=== PATIENT | female | born 1940 | race Caucasian/White ===

== ENCOUNTER 2017-01-21 10:40 | Outpatient (CLI) | payer MEDICARE ==
[2017-01-21 18:09] LABS: ALBUMIN/GLOBULIN RATIO 1.1 (1.0-2.2); BILIRUBIN,TOTAL 0.7 mg/dL (0.2-1.0); BUN - BLOOD UREA NITROGEN 20 mg/dL (6-20); CALCIUM 9.2 mg/dL (8.5-10.3); CARBON DIOXIDE - CO2 27 mmol/L (21-32); CHLORIDE 103 mmol/L (101-111); CHOL/HDL RATIO 4.8 (<4.4); CHOLESTEROL 181 mg/dL; GFR - MDRD 54 (>89); GLUCOSE 98 mg/dL (70-100); HDL CHOLESTEROL 38 mg/dL; LDL/HDL RATIO 2.9 (<4.4); POTASSIUM 4.2 mmol/L (3.5-5.0); SODIUM 137 mmol/L (135-145); TOTAL PROTEIN 7.8 g/dL (6.7-8.2); TRIGLYCERIDES 159 mg/dL; VLDL CHOLESTEROL 32 mg/dL
[2017-01-21 18:22] LABS: HEMOGLOBIN A1C 0.59 g/dL
== END 2017-01-21 10:41 | disposition home or self-care (01) ==
LOC: LAB.F 10:40
PROVIDERS: ATTEND Family Medicine
DX: Z00.00 Encounter for general adult medical examination without abnormal findings (principal); E78.5 Hyperlipidemia, unspecified; R73.01 Impaired fasting glucose
CPT/HCPCS: 36415; 80053; 80061; 80178; 83036

== ENCOUNTER 2017-02-25 12:37 | Outpatient (CLI) | payer MEDICARE ==
--- NOTE | 2017-02-25 14:32 | MRI Report ---
EXAM: MRI LUMBAR SPINE WITHOUT CONTRAST EXAM DATE: 02/25/2017 12:45 PM. CLINICAL HISTORY: Chronic low back pain for years. Originally worse on the right side with right-side d radiculopathy. COMPARISON: Copy of sheets of film of lumbar spine plain films 01/05/2007. TECHNIQUE: Multiplanar, multisequence T1-weighted and fluid-sensitive sequences of the lumbar spine f rom T12 to S1 without contrast. Other: None. FINDINGS: Spinal Cord: The conus terminates at T12-L1. The conus medullaris and cauda equina are unremarkable. Lumbar spinal canal is adequate. Alignment: Minimal, 2 mm, retrolisthesis is seen at L2-L3 and L3-L4. Bone Marrow: Five pwy-ieo-ilaitja lumbar vertebral bodies are assumed. No gross fractures or bone les ions. No bone marrow edema. Disk Levels/Facets: T12-L1: Unremarkable. Mild degenerative facet change is seen. Thickening of right ligamentum flavum i s noted. L1-L2: Unremarkable. L2-L3: Mild loss of disk space height is seen. Mild anterior bulge of disk/osteophyte complex is seen . No stenosis. L3-L4: Mild loss of disk space height is seen. Minimal anterior osteophyte formation is seen. No sten osis. L4-L5: Moderate hypertrophic degenerative facet change is seen bilaterally. The disk space is unremar kable. Mild effacement of proximal exiting left L4 nerve root is seen secondary to degenerative facet change effacing the posterior aspect of the nerve root at the junction of the lateral recess and for amen. No stenosis. L5-S1: Mild right-sided and moderate left-sided degenerative facet change is seen. The disk space is unremarkable. No stenosis. Musculature: Normal. No edema or fatty atrophy. Other: The partially visualized retroperitoneum is unremarkable. IMPRESSION: 1. Mild spondylosis in the lumbar spine as noted above. No significant stenosis. 2. L4-L5: Mild effacement of exiting left L4 nerve root at the junction of the L4 lateral recess and L4-L5 medial foramen. This is secondary to degenerative facet change. 3. Degenerative facet change at L4-L5 and L5-S1. Comment: The following findings are so common in adults without low back pain that while we report th eir presence, they must be interpreted with caution and in the context of the clinical situation. (Re nallely Beckham et al, Spine 2001) Prevalence of findings in patients without low back pain: Disk degeneration (any evidence): 92% Disk desiccation/T2 signal loss: 83% Disk height loss: 56% Disk bulge: 64% Disk protrusion: 32% Annular tear/high intensity zone: 38% [facility] Referring Provider Line: [phone] SITE ID: [id number]
== END 2017-02-25 12:38 | disposition home or self-care (01) ==
LOC: DI 12:37
PROVIDERS: ATTEND Physical Medicine & Rehabilitation Pain Medicine
DX: M47.896 Other spondylosis, lumbar region (principal); M47.897 Other spondylosis, lumbosacral region; M51.36 Other intervertebral disc degeneration, lumbar region
CPT/HCPCS: 72148

== ENCOUNTER 2017-09-08 10:45 | Outpatient (CLI) | payer MEDICARE ==
[2017-09-08 18:15] LABS: LITHIUM 0.27 mmol/L
== END 2017-09-08 10:46 | disposition home or self-care (01) ==
LOC: LAB.F 10:45
PROVIDERS: ATTEND Family Medicine
DX: Z79.899 Other long term (current) drug therapy (principal); F31.9 Bipolar disorder, unspecified
CPT/HCPCS: 36415; 80178

== ENCOUNTER 2018-06-17 11:40 | Outpatient (CLI) | payer MEDICARE ==
--- NOTE | 2018-06-17 13:29 | XRAY Report ---
Reason: PAIN IN RIGHT UPPER ARM Procedure Date: 06/17/2018 Accession Number: [id number] / [id number] Procedure: XR - Humerus RT CPT Code: FULL RESULT: EXAM: RIGHT HUMERUS RADIOGRAPHY EXAM DATE: 06/17/2018 11:55 AM. CLINICAL HISTORY: Pain in right upper arm. COMPARISON: None. TECHNIQUE: 2 views. FINDINGS: No fracture of the humerus. No radiopaque foreign body. IMPRESSION: The right humerus is intact. [facility]
== END 2018-06-17 11:41 | disposition home or self-care (01) ==
LOC: DI 11:40
PROVIDERS: ATTEND Internal Medicine
DX: M79.621 Pain in right upper arm (principal)

== ENCOUNTER 2018-06-23 12:57 | Outpatient (CLI) | payer MEDICARE ==
--- NOTE | 2018-06-24 09:31 | DEXA Report ---
Reason: POSTMENOPAUSAL STATUS Procedure Date: 06/23/2018 Accession Number: [id number] / [id number] Procedure: DEX - Dexa Spine and/or Hip CPT Code: FULL RESULT: EXAM: Dexa Spine and/or Hip DATE: 06/23/2018 1:32 PM CLINICAL HISTORY: POSTMENOPAUSAL STATUS TECHNIQUE: Dual energy x-ray absorptiometry (DXA) was performed on a [employer] System. Regions measured are the AP Spine, femoral neck, and if needed forearm. COMPARISON: None. In accordance with the International Society for Clinical Densitometry (ISCD) guidelines, data from previous exams may be reanalyzed using current recommendations and techniques. This is done to allow a more accurate basis for comparison with the current study. FINDINGS: The data for the lumbar spine is as follows: BMD (g/cm/cm) T-SCORE Z-SCORE REGION L1 1.199 0.6 1.2 L2 1.165 -0.3 0.3 L3 1.167 -0.3 0.4 L4 1.154 -0.4 0.2 TOTAL 1.170 -0.1 0.5 NOTE: All evaluable vertebrae are used for classification The data for the hip is as follows: BMD (g/cm/cm) T-SCORE Z-SCORE REGION Neck 0.750 -2.1 -0.8 TOTAL 0.920 -0.7 0.3 NOTE: The femoral neck or total proximal femur, whichever is lowest, is used for classification. IMPRESSION: THE WHO CLASSIFICATION BASED ON THE INTERNATIONAL REFERENCE STANDARD IS NORMAL. THE FRACTURE RISK IS NOT INCREASED. RECOMMENDATION: Patients with diagnosis of osteoporosis or osteopenia should have regular bone mineral density assessment. For those eligible for Medicare, routine testing is allowed once every 2 years. Testing frequency can be increased for patients who have rapidly progressing disease or for those who are receiving medical therapy to restore bone mass. COMMENT: World Health Organization (WHO) definitions for osteoporosis and osteopenia: NORMAL BMD: T-score at -1.0 or higher, fracture risk is low OSTEOPENIA BMD: T-score between -1.0 and -2.5, fracture risk is increased. OSTEOPOROSIS BMD: T-score at -2.5 or lower, fracture risk is high. National Osteoporosis Foundation recommends: 1. Obtain adequate dietary calcium (at least 1200 mg per day) and vitamin D (400-800 international units per day). 2. Participate, as appropriate, in regular weightbearing and muscle-strengthening exercise. 3. Avoid tobacco use and reduce alcohol and caffeine intake. 4. For more detailed information see the website at www.NOF.org.
== END 2018-06-23 12:58 | disposition home or self-care (01) ==
LOC: DI 12:57
PROVIDERS: ATTEND Internal Medicine
DX: M85.88 Other specified disorders of bone density and structure, other site (principal)
CPT/HCPCS: 77080

== ENCOUNTER 2018-10-31 09:52 | Outpatient (CLI) | payer MEDICARE ==
[2018-10-31 18:03] LABS: BASOPHILS # (AUTO) 0.1 10^3/uL (0.0-0.1); BASOPHILS % (AUTO) 0.9 %; EOSINOPHILS # (AUTO) 0.1 10^3/uL (0.0-0.7); EOSINOPHILS % (AUTO) 1.1 %; HGB - HEMOGLOBIN 13.8 g/dL (12.0-16.0); LYMPHOCYTES # (AUTO) 1.4 10^3/uL (1.5-3.5); MEAN CORPUSCULAR HEMOGLOBIN 29.3 pg (27.0-31.0); MEAN CORPUSCULAR HGB CONC 32.2 g/dL (32.0-36.0); MEAN CORPUSCULAR VOLUME 91.1 fL (81.0-99.0); MEAN PLATELET VOLUME 10.1 fL (7.9-10.8); MONOCYTES # (AUTO) 0.4 10^3/uL (0.0-1.0); MONOCYTES % (AUTO) 6.2 %; NEUTROPHILS # (AUTO) 3.8 10^3/uL (1.5-6.6); NEUTROPHILS % (AUTO) 66.8 %; PLT - PLATELET COUNT 202 10^3/uL (130-450); RED BLOOD COUNT 4.71 10^6/uL (4.20-5.40); RED CELL DISTRIBUTION WIDTH 15.1 % (12.0-15.0); WHITE BLOOD COUNT 5.7 x10^3/uL (4.8-10.8)
[2018-10-31 18:16] LABS: ALBUMIN 4.1 g/dL (3.2-5.5); ALKALINE PHOSPHATASE 95 IU/L (42-121); ALT ALANINE AMINOTRANSFERASE 27 IU/L (10-60); AST ASPARTATE AMINOTRANSFERASE 26 IU/L (10-42); BILIRUBIN,TOTAL 0.8 mg/dL (0.2-1.0); BUN - BLOOD UREA NITROGEN 13 mg/dL (6-20); CALCIUM 9.5 mg/dL (8.5-10.3); CARBON DIOXIDE - CO2 27 mmol/L (21-32); CHLORIDE 104 mmol/L (101-111); CHOL/HDL RATIO 4.3 (<4.4); CHOLESTEROL 175 mg/dL; GFR - MDRD 54 (>89); GLUCOSE 102 mg/dL (70-100); HDL CHOLESTEROL 41 mg/dL; LDL CHOLESTEROL,CALCULATED 112 mg/dL; LDL/HDL RATIO 2.7 (<4.4); SODIUM 139 mmol/L (135-145); TOTAL PROTEIN 8.1 g/dL (6.7-8.2); VLDL CHOLESTEROL 22 mg/dL
[2018-10-31 18:21] LABS: LITHIUM 0.28 mmol/L
[2018-10-31 19:37] LABS: HB2 TOTAL 14.7 g/dL; HEMOGLOBIN A1C 0.55 g/dL; HEMOGLOBIN A1C % 5.6 % (4.6-6.2)
== END 2018-10-31 09:53 | disposition home or self-care (01) ==
LOC: LAB.F 09:52
PROVIDERS: ATTEND Nurse Practitioner
DX: Z00.00 Encounter for general adult medical examination without abnormal findings (principal); F31.9 Bipolar disorder, unspecified
CPT/HCPCS: 36415; 80053; 80061; 80178; 83036; 83721; 84443; 85025

== ENCOUNTER 2019-05-05 16:39 | Emergency (ER) | payer MEDICARE ==
[2019-05-05] MEDS ORDERED: oxyCODONE 5 MG TABLET PO STA (17:20)
--- NOTE | 2019-05-05 18:07 | XRAY Report ---
Reason: Fall with low back pain Procedure Date: 05/05/2019 Accession Number: [id number] / [id number] Procedure: XR - Lumbar Spine 2 View CPT Code: FULL RESULT: EXAM: LUMBOSACRAL SPINE RADIOGRAPHY EXAM DATE: 05/05/2019 05:30 PM. CLINICAL HISTORY: Fall with low back pain. COMPARISONS: None. TECHNIQUE: 2 views. FINDINGS: Alignment: No evidence of dislocation. There is left convex scoliosis. Bones: Bones are osteopenic. No evidence of acute fracture. Disks/Facets: There is multilevel disk space narrowing. There is lower lumbar facet arthrosis. Sacroiliac Joints: Unremarkable. Soft Tissues: No unexpected findings. IMPRESSION: No evidence of fracture or dislocation. [facility]
--- NOTE | 2019-05-05 18:08 | XRAY Report ---
Reason: Right wrist injury Procedure Date: 05/05/2019 Accession Number: [id number] / [id number] Procedure: XR - Wrist 3 View RT CPT Code: FULL RESULT: EXAM: RIGHT WRIST RADIOGRAPHY EXAM DATE: 05/05/2019 06:00 PM. CLINICAL HISTORY: Right wrist injury. COMPARISON: None. TECHNIQUE: 3 views. FINDINGS: Bones: Comminuted angulated intra-articular fracture of the distal right radial metaphysis. Avulsion fracture of the ulnar styloid.. Joints: Moderate degenerative changes in the first carpometacarpal joint. Soft Tissues: Normal. No soft tissue swelling. IMPRESSION: 1. Comminuted angulated intra-articular fracture of the distal right radial metaphysis. 2. Avulsion fracture of the ulnar styloid. [facility]
[2019-05-05] MEDS ORDERED: BUFFERED LIDOCAINE 10 ML SYRINGE SUBQ STA (18:17)
--- NOTE | 2019-05-05 18:17 | ED Physician Documentation ---
PD HPI Fall - Stated complaint Stated Complaint: RT WRIST PX - Chief complaint Chief Complaint: Ext Problem - History obtained from History obtained from: Patient, Family - History of Present Illness Mechanism of injury: Tripped Fall distance: Standing position Where injury occurred: Home Timing - onset: How many hours ago (1.5) Injury(ies) location: Right Upper Extremity Similar symptoms before: Has not had sx before - Additional information Additional information: The patient is a 78-year-old female who tripped and fell when walking downstairs to the carport about 1/2 hours prior to arrival. She fell onto her buttocks and landed with outstretched right hand underneath her. She landed onto concrete floor. She is right-hand dominant. She denies hitting her head or losing consciousness. She has been ambulatory since the incident occurred. Tetanus status is up-to-date. Review of Systems Constitutional: denies: Fever Nose: denies: Congestion Throat: denies: Sore throat Cardiac: denies: Chest pain / pressure Respiratory: denies: Dyspnea, Cough GI: denies: Abdominal Pain, Nausea, Vomiting : denies: Dysuria Skin: reports: Abrasion (s) (left forearm). denies: Rash Musculoskeletal: reports: Back pain (left lower back), Joint pain (right wrist) Neurologic: denies: Focal weakness, Numbness, Headache, Head injury, LOC PD PAST MEDICAL HISTORY - Past Medical History Past Medical History: Yes Respiratory: Emphysema Psych: Depression - Past Surgical History Past Surgical History: Yes General: Cholecystectomy, Appendectomy /LOG TRUCK DRIVER: section Derm: Skin cancer surgery - Present Medications Home Medications: Ambulatory Orders Medication Instructions Recorded Confirmed Hydrocodone/Acetaminophen 1 - 2 each PO Q6H PRN #14 tablet 05/05/19 [Hydrocodon-Acetaminophen 5-325] Nitrofurantoin Monohyd/M-Cryst 100 mg PO BID #10 capsule 05/05/19 [Macrobid 100 mg Capsule] - Allergies Allergies/Adverse Reactions: Allergies Allergy/AdvReac Type Severity Reaction Status Date / Time morphine Allergy Nausea Verified 05/05/19 16:50 - Social History Does the pt smoke?: No Smoking Status: Never smoker Does the pt drink ETOH?: No - Immunizations Immunizations are current?: No PD ED PE NORMAL - Vitals Vital signs reviewed: Yes (diastolic hypertension) - General General: Alert and oriented X 3, Well developed/nourished - HEENT HEENT: Atraumatic, EOMI, Pharynx benign - Neck Neck: No bony TTP, Other (Full cervical range of motion without tenderness.) - Cardiac Cardiac: RRR - Respiratory Respiratory: No respiratory distress, Clear bilaterally - Abdomen Abdomen: Soft, Non tender - Back Back: No CVA TTP, Other (Tenderness to palpation in the left paralumbar region, without tenderness along the spinous processes.) - Derm Derm: No rash - Extremities Extremities: No edema, No calf tenderness / cord, Other (There is deformity of the right wrist with associated tenderness to palpation, consistent with Colles' fracture. There is no break in the integument. Distal neurovascular is intact. In addition, there are superficial abrasions along the radial aspect of the l eft forearm.) - Neuro Neuro: Alert and oriented X 3, No motor deficit, No sensory deficit, Normal speech Results - Vitals Vitals: Oxygen O2 Source Room air - EKG (time done) 19:11 Rate: Rate (enter#) (69) Rhythm: NSR [place]: Normal Intervals: Normal MI QRS: Low voltage Ischemia: Normal ST segments Computer interpretation: Agree with computer - Labs Labs: Laboratory Tests 05/05/19 05/05/19 05/05/19 19:28 19:51 19:51 WBC 11.8 H RBC 4.33 Hgb 12.6 Hct 39.9 MCV 92.1 MCH 29.1 MCHC 31.6 L RDW 14.2 Plt Count 163 MPV 11.2 H Neut # (Auto) 10.1 H Lymph # (Auto) 1.1 L [place] # (Auto) 0.5 Eos # (Auto) 0.0 Baso # (Auto) 0.1 Absolute Nucleated RBC 0.00 Nucleated RBC % 0.0 Sodium 140 Potassium 4.0 Chloride 104 Carbon Dioxide 25 Anion Gap 11.0 BUN 15 Creatinine 0.9 Estimated GFR (MDRD) 61 L Glucose 124 H Calcium 9.0 Total Bilirubin 0.6 AST 21 ALT 23 Alkaline Phosphatase 83 Total Protein 7.5 Albumin 3.8 Globulin 3.7 Albumin/Globulin Ratio 1.0 Lipase 24 Urine Color YELLOW Urine Clarity HAZY Urine pH 5.5 Ur Specific Ste[place] 1.010 Urine Protein NEGATIVE Urine Glucose (UA) NEGATIVE Urine Ketones NEGATIVE Urine Occult Blood NEGATIVE Urine Nitrite NEGATIVE Urine Bilirubin NEGATIVE Urine Urobilinogen 0.2 (NORMAL) Ur Leukocyte Esterase SMALL H Urine RBC 0-5 Urine WBC 6-10 H Ur Squamous Epith Cells MANY Squamous H Urine Bacteria Many H Ur Microscopic Review INDICATED Urine Culture Comments NOT INDICATED - Rads (name of study) right wrist Radiology: Prelim report reviewed, EMP read contemporaneously, See rad report (Comminuted angulated intra-articular fracture of the distal right radial metaphysis. A avulsion fracture of the ulnar styloid.) lumbar spine Radiology: Prelim report reviewed, EMP read contemporaneously, See rad report (No evidence of fracture or dislocation.) post reduction right wrist Radiology: Prelim report reviewed, EMP read contemporaneously, See rad report (Distal radial and ulnar styloid fractures demonstrate near anatomic alignment post reduction and splinting.) Procedures - Reduction Body part reduced: Right, Wrist Fracture or dislocation: Fracture dislocation Anesthesia: Hematoma block, Lidocaine (enter cc) (8), Fentanyl (50 mcg) Reduction aftercare: NV intact, Xray confirms reduction, Alignment improved, Sling, Patient tolerated well PD MEDICAL DECISION MAKING - ED course Complexity details: reviewed results, re-evaluated patient, considered differential, d/w patient, d/w family ED course: The patient's presentation is significant for comminuted right distal radius fracture with ulnar styloid fracture, with dorsal angulation of the distal component. In addition she has abrasions of her left forearm, and contusion to her lower back. X-rays of her lumbar spine revealed no acute bony abnormality. Treatment in the emergency department included reduction of the wrist fracture after administering hematoma block as well as fentanyl 50 mcg IV. Sugar tong splint was applied. Post reduction x-ray reveals near anatomic alignment. Arm sling was applied. The patient's son and daughter expressed concern that her fall may have been caused by something more serious than tripping. The son reports that the patient's behavior has been a little bit different than usual the past 2 days, with abnormal mood swings. Further work-up included electrocardiogram which was normal. CBC reveals mildly elevated white count of 11.8. Chemistry panel is normal. Urinalysis is positive for leukocyte esterase, 6-10 white cells per high-powered field and many bacteria. Further treatment in the emergency department included administration of Macrobid 100 mg orally. I discussed with the patient and her family the results of the work-up, the importance of outpatient follow-up with orthopedic surgeon as well as primary physician, as well as potentially worrisome signs or symptoms that should prompt reevaluation in the emergency department. Departure - Departure Disposition: 01 Home, Self Care Clinical Impression: Right wrist fracture Qualifiers: Encounter type: initial encounter Fracture type: closed Qualified Code(s): S62.101A - Fracture of unspecified carpal bone, right wrist, initial encounter for closed fracture Abrasion of left forearm Qualifiers: Encounter type: initial encounter Qualified Code(s): S50.812A - Abrasion of left forearm, initial encounter Fall Qualifiers: Encounter type: initial encounter Qualified Code(s): W19.XXXA - Unspecified fall, initial encounter UTI (urinary tract infection) Qualifiers: Urinary tract infection type: acute cystitis Hematuria presence: without hematuria Qualified Code(s): N30.00 - Acute cystitis without hematuria Condition: Stable Instructions: ED UTI Cystitis Female, ED Fx Wrist General Follow-Up: [facility] [Provider Group] Anderson Toussaint MD [Provider Admit Priv/Credential] - Prescriptions: Hydrocodone/Acetaminophen [Hydrocodon-Acetaminophen 5-325] 1 - 2 each PO Q6H PRN #14 tablet PRN Reason: pain Nitrofurantoin Monohyd/M-Cryst [Macrobid 100 mg Capsule] 100 mg PO BID #10 capsule Comments: Keep the splint dry. Keep your right arm elevated as much the time as possible. Apply ice pack intermittently for the next several days. You can use Tylenol or ibuprofen for anti-inflammatory effect. You can use Vicodin as prescribed if needed for more severe pain. Follow-up with orthopedic surgery within 1 week if possible. Call on Wednesday to schedule an appointment. Return to the emergency department if you develop markedly increasing pain, or otherwise worsening symptoms. Discharge Date/Time: 05/05/19 20:35
[2019-05-05] MEDS ORDERED: fentaNYL 100 MCG/2 ML VIAL IVP STA (18:42)
[2019-05-05 19:39] LABS: BILIRUBIN,URINE NEGATIVE (NEGATIVE); GLUCOSE, URINE (UA) NEGATIVE (NEGATIVE); KETONES,URINE (UA) NEGATIVE (NEGATIVE); LEUKOCYTE ESTERASE, URINE SMALL (NEGATIVE); NITRITE,URINE NEGATIVE (NEGATIVE); OCCULT BLOOD,URINE NEGATIVE (NEGATIVE); PH,URINE 5.5 PH (5.0-7.5); PROTEIN,URINE NEGATIVE (NEGATIVE); UROBILINOGEN,URINE 0.2 (NORMAL) E.U./dL (NORMAL)
[2019-05-05 19:43] LABS: CLARITY,URINE HAZY (CLEAR)
[2019-05-05 20:01] LABS: BASOPHILS # (AUTO) 0.1 10^3/uL (0.0-0.1); BASOPHILS % (AUTO) 0.4 %; EOSINOPHILS % (AUTO) 0.3 %; HGB - HEMOGLOBIN 12.6 g/dL (12.0-16.0); LYMPHOCYTES # (AUTO) 1.1 10^3/uL (1.5-3.5); LYMPHOCYTES % (AUTO) 9.2 %; MEAN CORPUSCULAR HEMOGLOBIN 29.1 pg (27.0-31.0); MEAN CORPUSCULAR HGB CONC 31.6 g/dL (32.0-36.0); MEAN CORPUSCULAR VOLUME 92.1 fL (81.0-99.0); MEAN PLATELET VOLUME 11.2 fL (7.9-10.8); MONOCYTES # (AUTO) 0.5 10^3/uL (0.0-1.0); NEUTROPHILS # (AUTO) 10.1 10^3/uL (1.5-6.6); NEUTROPHILS % (AUTO) 85.6 %; PLT - PLATELET COUNT 163 10^3/uL (130-450); RED BLOOD COUNT 4.33 10^6/uL (4.20-5.40); RED CELL DISTRIBUTION WIDTH 14.2 % (12.0-15.0); WHITE BLOOD COUNT 11.8 x10^3/uL (4.8-10.8)
--- NOTE | 2019-05-05 20:03 | XRAY Report ---
Reason: post reduction and splinting Procedure Date: 05/05/2019 Accession Number: [id number] / [id number] Procedure: XR - Wrist 2 View RT CPT Code: FULL RESULT: EXAM: RIGHT WRIST RADIOGRAPHY EXAM DATE: 05/05/2019 07:25 PM. CLINICAL HISTORY: Post reduction and splinting. COMPARISON: WRIST 4 VIEW RT 05/05/2019 5:30 PM. TECHNIQUE: 2 views. FINDINGS: Bones: Distal radial and ulnar styloid fractures demonstrate near-anatomic alignment post reduction and splinting. Joints: Osteoarthritis. No subluxations. IMPRESSION: Near-anatomic alignment post reduction and splinting. [facility]
[2019-05-05 20:06] LABS: BACTERIA,URINE Many /HPF (None Seen); RBC,URINE 0-5 /HPF (0-5); SQUAMOUS EPITHELIAL CELL,UR MANY Squamous (<= Few)
[2019-05-05] MEDS ORDERED: NITROFURANTOIN MACRO 100 MG CAPSULE PO STA (20:08)
[2019-05-05 20:12] LABS: ALBUMIN 3.8 g/dL (3.2-5.5); BILIRUBIN,TOTAL 0.6 mg/dL (0.2-1.0); CREATININE 0.9 mg/dL (0.4-1.0); TOTAL PROTEIN 7.5 g/dL (6.7-8.2)
[2019-05-05] MEDS ORDERED: HYDROcod/ACET 5/325 Prepack 4 PO STA (20:29)
[2019-05-05 20:35] VITALS: BP 134/79
== END 2019-05-05 20:35 | disposition home or self-care (01) ==
LOC: ED 16:39
DX: S52.571A Other intraarticular fracture of lower end of right radius, initial encounter for closed fracture (principal); S52.611A Displaced fracture of right ulna styloid process, initial encounter for closed fracture; S50.812A Abrasion of left forearm, initial encounter; S30.0XXA Contusion of lower back and pelvis, initial encounter; W10.8XXA Fall (on) (from) other stairs and steps, initial encounter; Y93.01 Activity, walking, marching and hiking; Y92.008 Other place in unspecified non-institutional (private) residence as the place of occurrence of the external cause; N30.00 Acute cystitis without hematuria; F39 Unspecified mood [affective] disorder
CPT/HCPCS: 25605; 36415; 72100; 73100; 73110; 80053; 81001; 83690; 85025; 93005; 96374; 99283; 99284; A9270; 81003; 87086

== ENCOUNTER 2019-05-13 12:07 | Outpatient (CLI) | payer MEDICARE ==
[2019-05-13 12:31] LABS: BASOPHILS # (AUTO) 0.1 10^3/uL (0.0-0.1); BASOPHILS % (AUTO) 0.9 %; EOSINOPHILS # (AUTO) 0.1 10^3/uL (0.0-0.7); EOSINOPHILS % (AUTO) 2.1 %; HGB - HEMOGLOBIN 12.8 g/dL (12.0-16.0); LYMPHOCYTES # (AUTO) 1.7 10^3/uL (1.5-3.5); LYMPHOCYTES % (AUTO) 24.6 %; MEAN CORPUSCULAR HEMOGLOBIN 29.3 pg (27.0-31.0); MEAN CORPUSCULAR HGB CONC 31.1 g/dL (32.0-36.0); MEAN CORPUSCULAR VOLUME 94.1 fL (81.0-99.0); MEAN PLATELET VOLUME 10.8 fL (7.9-10.8); MONOCYTES # (AUTO) 0.3 10^3/uL (0.0-1.0); MONOCYTES % (AUTO) 4.6 %; NEUTROPHILS # (AUTO) 4.5 10^3/uL (1.5-6.6); NEUTROPHILS % (AUTO) 67.2 %; PLT - PLATELET COUNT 217 10^3/uL (130-450); RED BLOOD COUNT 4.37 10^6/uL (4.20-5.40); RED CELL DISTRIBUTION WIDTH 14.1 % (12.0-15.0); WHITE BLOOD COUNT 6.7 x10^3/uL (4.8-10.8)
[2019-05-13 12:40] LABS: ALBUMIN 3.7 g/dL (3.2-5.5); BILIRUBIN,TOTAL 0.6 mg/dL (0.2-1.0); CALCIUM 8.8 mg/dL (8.5-10.3); TOTAL PROTEIN 7.5 g/dL (6.7-8.2)
[2019-05-13 13:50] LABS: BILIRUBIN,URINE NEGATIVE (NEGATIVE); GLUCOSE, URINE (UA) NEGATIVE (NEGATIVE); KETONES,URINE (UA) NEGATIVE (NEGATIVE); LEUKOCYTE ESTERASE, URINE NEGATIVE (NEGATIVE); NITRITE,URINE NEGATIVE (NEGATIVE); OCCULT BLOOD,URINE NEGATIVE (NEGATIVE); PROTEIN,URINE NEGATIVE (NEGATIVE); UROBILINOGEN,URINE 0.2 (NORMAL) E.U./dL (NORMAL)
[2019-05-13 13:52] LABS: CLARITY,URINE CLEAR (CLEAR)
== END 2019-05-13 12:08 | disposition home or self-care (01) ==
LOC: LAB 12:07
PROVIDERS: ATTEND Nurse Practitioner
DX: R35.0 Frequency of micturition (principal); R63.5 Abnormal weight gain; R60.9 Edema, unspecified
CPT/HCPCS: 36415; 80053; 81001; 81003; 85025; 87086

== ENCOUNTER 2019-05-14 16:54 | Emergency (ER) | payer MEDICARE ==
[2019-05-14 17:13] VITALS: BP 138/66
[2019-05-14] MEDS ORDERED: FUROSEMIDE 20 MG TABLET PO STA (17:48)
--- NOTE | 2019-05-14 17:50 | ED Physician Documentation ---
History of Present Illness - Stated complaint Stated Complaint: SWELLING BODY,HEART CONDITION - Chief complaint Chief Complaint: Cardiac - History obtained from History obtained from: Patient, Family - History of Present Illness Timing: How many weeks ago (1) Pain level max: 0 Pain level now: 0 Improved by: Elevation Worsened by: Standing - Additonal information Additional information: 78-year-old female is approximately 9 days status post a ground-level fall. She fractured her right arm and is in a cast. She also injured her back. Has been unable to lay flat at home. Has had increasing swelling in the legs. Saw her doctor yesterday and was placed on Lasix 20 mg by mouth daily. States that her legs are still swollen today. Has not been able to elevate her legs near or above the level of her heart. Does not utilize compression stockings. No chest pain. No difficulty breathing. She states that her primary care provider told her that the swelling in her legs could cause a heart attack or make her heart fail. She states that she was told that if her legs continue to swell today, she should come immediately to the emergency department. 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 Derm: Skin cancer surgery - Present Medications Home Medications: Ambulatory Orders Medication Instructions Recorded Confirmed Nitrofurantoin Monohyd/M-Cryst 100 mg PO BID #10 capsule 05/05/19 05/14/19 [Macrobid 100 mg Capsule] Furosemide [Lasix] 20 mg PO DAILY 05/14/19 05/14/19 Potassium Chloride [Klor-Con M20] 20 meq PO DAILY 05/14/19 05/14/19 - Allergies Allergies/Adverse Reactions: Allergies Allergy/AdvReac Type Severity Reaction Status Date / Time morphine Allergy Nausea Verified 05/14/19 17:08 - Social History Does the pt smoke?: No Smoking Status: Never smoker Does the pt drink ETOH?: No - Immunizations Immunizations are current?: No PD ED PE NORMAL - Vitals Vital signs reviewed: Yes - General General: Alert and oriented X 3, No acute distress - HEENT HEENT: PERRL, Moist mucous membranes - Neck Neck: Supple, no meningeal sign - Cardiac Cardiac: RRR, Strong equal pulses - Respiratory Respiratory: No respiratory distress, Clear bilaterally - Abdomen Abdomen: Soft, Non tender, Non distended - Derm Derm: Warm and dry - Extremities Extremities: Other (2+ bilateral pitting edema. Mild ecchymosis over the right anterior allen and the top of the right foot. Likely bruising from the fall. No tenderness) - Neuro Neuro: Alert and oriented X 3 - Psych Psych: Normal mood, Normal affect Results - Vitals Vitals: Vital Signs - 24 hr 05/14/19 17:03 Temperature 37.0 C Heart Rate 85 Respiratory 20 Rate Blood Pressure 138/66 H O2 Saturation 95 Oxygen O2 Source Room air - Labs Labs: Laboratory Tests 05/14/19 05/14/19 05/14/19 17:55 18:20 18:20 WBC 8.0 RBC 4.09 L Hgb 12.2 Hct 38.3 MCV 93.6 MCH 29.8 MCHC 31.9 L RDW 14.3 Plt Count 209 MPV 10.6 Neut # (Auto) 5.6 Lymph # (Auto) 1.6 [place] # (Auto) 0.6 Eos # (Auto) 0.1 Baso # (Auto) 0.1 Absolute Nucleated RBC 0.00 Nucleated RBC % 0.0 Sodium 138 Potassium 3.4 L Chloride 103 Carbon Dioxide 26 Anion Gap 9.0 BUN 17 Creatinine 1.0 Estimated GFR (MDRD) 54 L Glucose 170 H Calcium 8.5 Total Bilirubin 0.5 AST 15 ALT 15 Alkaline Phosphatase 91 B-Natriuretic Peptide 31 Total Protein 7.1 Albumin 3.5 Globulin 3.6 Albumin/Globulin Ratio 1.0 Lipase 26 - Rads (name of study) cxr Radiology: Prelim report reviewed, EMP read contemporaneously, See rad report (No acute abnormality) PD MEDICAL DECISION MAKING - ED course Complexity details: reviewed old records, reviewed results, re-evaluated patient, considered differential, d/w patient, d/w family ED course: Patient with peripheral edema secondary to not being able to lie flat. She has a nonelevated her leg significantly since her fall. No evidence of congestive heart failure. No hypoxia. No evidence of infection. No evidence of DVT. Given increased dose of Lasix here. Continue Lasix at home. Patient and family counseled regarding signs and symptoms for which I believe and urgent re- evaluation would be necessary. Patient with good understanding of and agreement to plan and is comfortable going home at this time This document was made in part using voice recognition software. While efforts are made to proofread this document, sound alike and grammatical errors may occur. Departure - Departure Disposition: 01 Home, Self Care Clinical Impression: Peripheral edema Condition: Good Instructions: ED Edema Legs Bilateral Follow-Up: Anderson Toussaint MD [Primary Care Provider] - Within 1 week Comments: Continue the Lasix as previously prescribed. Elevate your legs as much as possible. You have no evidence of congestive heart failure on testing today. Discharge Date/Time: 05/14/19 19:22
[2019-05-14 18:14] LABS: ALBUMIN 3.5 g/dL (3.2-5.5); BILIRUBIN,TOTAL 0.5 mg/dL (0.2-1.0); CALCIUM 8.5 mg/dL (8.5-10.3); TOTAL PROTEIN 7.1 g/dL (6.7-8.2)
[2019-05-14 18:29] LABS: BASOPHILS # (AUTO) 0.1 10^3/uL (0.0-0.1); BASOPHILS % (AUTO) 0.9 %; EOSINOPHILS # (AUTO) 0.1 10^3/uL (0.0-0.7); EOSINOPHILS % (AUTO) 1.1 %; HGB - HEMOGLOBIN 12.2 g/dL (12.0-16.0); LYMPHOCYTES # (AUTO) 1.6 10^3/uL (1.5-3.5); LYMPHOCYTES % (AUTO) 20.3 %; MEAN CORPUSCULAR HEMOGLOBIN 29.8 pg (27.0-31.0); MEAN CORPUSCULAR HGB CONC 31.9 g/dL (32.0-36.0); MEAN CORPUSCULAR VOLUME 93.6 fL (81.0-99.0); MEAN PLATELET VOLUME 10.6 fL (7.9-10.8); MONOCYTES # (AUTO) 0.6 10^3/uL (0.0-1.0); NEUTROPHILS # (AUTO) 5.6 10^3/uL (1.5-6.6); NEUTROPHILS % (AUTO) 70.1 %; PLT - PLATELET COUNT 209 10^3/uL (130-450); RED BLOOD COUNT 4.09 10^6/uL (4.20-5.40); RED CELL DISTRIBUTION WIDTH 14.3 % (12.0-15.0)
--- NOTE | 2019-05-14 18:41 | XRAY Report ---
Reason: leg swelling Procedure Date: 05/14/2019 Accession Number: [id number] / [id number] Procedure: XR - Chest 1 View X-Ray CPT Code: 71178 FULL RESULT: EXAM: CHEST RADIOGRAPHY EXAM DATE: 05/14/2019 06:05 PM. CLINICAL HISTORY: Pedal edema. COMPARISON: RIBS W/PA CHEST RT 06/05/2016 1:07 PM. TECHNIQUE: 1 view. FINDINGS: Lungs/Pleura: No focal opacities evident. No pleural effusion. No pneumothorax. Mediastinum: Within exam limitations, the cardiomediastinal contour is normal. Other: None. IMPRESSION: Negative exam. No CHF/fluid overload. [facility]
[2019-05-14] MEDS ORDERED: IBUPROFEN 800 MG TABLET PO STA (19:04)
== END 2019-05-14 19:22 | disposition home or self-care (01) ==
LOC: ED 16:54
DX: R60.0 Localized edema (principal)
CPT/HCPCS: 36415; 71045; 80053; 83690; 83880; 85025; 99284; A9270

== ENCOUNTER 2020-01-18 10:06 | Outpatient (CLI) | payer MEDICARE ==
[2020-01-18 15:08] LABS: BASOPHILS # (AUTO) 0.1 10^3/uL (0.0-0.1); EOSINOPHILS # (AUTO) 0.1 10^3/uL (0.0-0.7); EOSINOPHILS % (AUTO) 1.4 %; HGB - HEMOGLOBIN 13.4 g/dL (12.0-16.0); LYMPHOCYTES # (AUTO) 1.4 10^3/uL (1.5-3.5); LYMPHOCYTES % (AUTO) 24.1 %; MEAN CORPUSCULAR HEMOGLOBIN 28.9 pg (27.0-31.0); MEAN CORPUSCULAR HGB CONC 31.1 g/dL (32.0-36.0); MEAN CORPUSCULAR VOLUME 92.9 fL (81.0-99.0); MEAN PLATELET VOLUME 11.8 fL (7.9-10.8); MONOCYTES # (AUTO) 0.5 10^3/uL (0.0-1.0); MONOCYTES % (AUTO) 7.9 %; NEUTROPHILS # (AUTO) 3.8 10^3/uL (1.5-6.6); NEUTROPHILS % (AUTO) 65.4 %; PLT - PLATELET COUNT 197 10^3/uL (130-450); RED BLOOD COUNT 4.64 10^6/uL (4.20-5.40); RED CELL DISTRIBUTION WIDTH 14.3 % (12.0-15.0); WHITE BLOOD COUNT 5.7 x10^3/uL (4.8-10.8)
[2020-01-18 15:29] LABS: BILIRUBIN,URINE NEGATIVE (NEGATIVE); GLUCOSE, URINE (UA) NEGATIVE (NEGATIVE); KETONES,URINE (UA) NEGATIVE (NEGATIVE); LEUKOCYTE ESTERASE, URINE NEGATIVE (NEGATIVE); NITRITE,URINE NEGATIVE (NEGATIVE); OCCULT BLOOD,URINE NEGATIVE (NEGATIVE); PROTEIN,URINE NEGATIVE (NEGATIVE); UROBILINOGEN,URINE 0.2 (NORMAL) E.U./dL (NORMAL)
[2020-01-18 15:31] LABS: CLARITY,URINE CLEAR (CLEAR)
[2020-01-18 15:39] LABS: BACTERIA,URINE Few /HPF (None Seen); RBC,URINE 0-5 /HPF (0-5); SQUAMOUS EPITHELIAL CELL,UR FEW Squamous (<= Few)
[2020-01-18 15:45] LABS: ALBUMIN 3.7 g/dL (3.2-5.5); ALBUMIN/GLOBULIN RATIO 0.9 (1.0-2.2); BILIRUBIN,TOTAL 0.5 mg/dL (0.2-1.0); CALCIUM 8.9 mg/dL (8.5-10.3); CREATININE 0.9 mg/dL (0.4-1.0); TOTAL PROTEIN 7.7 g/dL (6.7-8.2)
[2020-01-18 15:58] LABS: LITHIUM 0.26 mmol/L
== END 2020-01-18 10:07 | disposition home or self-care (01) ==
LOC: LAB.S 10:06
PROVIDERS: ATTEND Nurse Practitioner
DX: R39.11 Hesitancy of micturition (principal); K59.00 Constipation, unspecified; J44.9 Chronic obstructive pulmonary disease, unspecified; F31.9 Bipolar disorder, unspecified; E78.5 Hyperlipidemia, unspecified; K21.9 Gastro-esophageal reflux disease without esophagitis; Z51.81 Encounter for therapeutic drug level monitoring
CPT/HCPCS: 36415; 80053; 80178; 81001; 85025; 87086

== ENCOUNTER 2021-01-31 08:00 | Outpatient (CLI) | payer MEDICARE ==
[2021-01-31 15:35] LABS: BILIRUBIN,URINE NEGATIVE (NEGATIVE); GLUCOSE, URINE (UA) NEGATIVE (NEGATIVE); KETONES,URINE (UA) NEGATIVE (NEGATIVE); LEUKOCYTE ESTERASE, URINE SMALL (NEGATIVE); NITRITE,URINE NEGATIVE (NEGATIVE); OCCULT BLOOD,URINE NEGATIVE (NEGATIVE); PROTEIN,URINE NEGATIVE (NEGATIVE); UROBILINOGEN,URINE 0.2 (NORMAL) E.U./dL (NORMAL)
[2021-01-31 15:39] LABS: CLARITY,URINE CLEAR (CLEAR)
[2021-01-31 15:45] LABS: BACTERIA,URINE Moderate /HPF (None Seen); RBC,URINE 0-5 /HPF (0-5); SQUAMOUS EPITHELIAL CELL,UR MANY Squamous (<= Few); WBC,URINE 0-3 /HPF (0-5)
== END 2021-01-31 23:59 | disposition home or self-care (01) ==
LOC: LAB.S 08:00
PROVIDERS: ATTEND Emergency Medicine
DX: R30.0 Dysuria (principal); F31.9 Bipolar disorder, unspecified; Z79.899 Other long term (current) drug therapy
CPT/HCPCS: 36415; 80053; 80061; 80178; 81001; 83036; 83721; 84443; 85025; 87086

== ENCOUNTER 2021-01-31 10:08 | Outpatient (CLI) | payer MEDICARE ==
[2021-01-31 14:45] LABS: BASOPHILS # (AUTO) 0.1 10^3/uL (0.0-0.1); BASOPHILS % (AUTO) 1.1 %; EOSINOPHILS # (AUTO) 0.1 10^3/uL (0.0-0.7); HCT - HEMATOCRIT 46.6 % (37.0-47.0); HGB - HEMOGLOBIN 13.9 g/dL (12.0-16.0); LYMPHOCYTES # (AUTO) 2.1 10^3/uL (1.5-3.5); MEAN CORPUSCULAR HEMOGLOBIN 28.8 pg (27.0-31.0); MEAN CORPUSCULAR HGB CONC 29.8 g/dL (32.0-36.0); MEAN CORPUSCULAR VOLUME 96.7 fL (81.0-99.0); MONOCYTES # (AUTO) 0.5 10^3/uL (0.0-1.0); MONOCYTES % (AUTO) 6.5 %; NEUTROPHILS # (AUTO) 4.5 10^3/uL (1.5-6.6); NEUTROPHILS % (AUTO) 62.3 %; PLT - PLATELET COUNT 218 10^3/uL (130-450); RED BLOOD COUNT 4.82 10^6/uL (4.20-5.40); RED CELL DISTRIBUTION WIDTH 14.6 % (12.0-15.0); WHITE BLOOD COUNT 7.3 x10^3/uL (4.8-10.8)
[2021-01-31 16:04] LABS: ALBUMIN 4.4 g/dL (3.2-5.5); ALBUMIN/GLOBULIN RATIO 1.1 (1.0-2.2); ALKALINE PHOSPHATASE 97 IU/L (42-121); ALT ALANINE AMINOTRANSFERASE 24 IU/L (10-60); AST ASPARTATE AMINOTRANSFERASE 22 IU/L (10-42); BILIRUBIN,TOTAL 0.9 mg/dL (0.2-1.0); BUN - BLOOD UREA NITROGEN 19 mg/dL (6-20); CALCIUM 9.7 mg/dL (8.5-10.3); CARBON DIOXIDE - CO2 25 mmol/L (21-32); CHLORIDE 103 mmol/L (101-111); CHOL/HDL RATIO 5.1 (<4.4); CHOLESTEROL 192 mg/dL; CREATININE 0.9 mg/dL (0.4-1.0); GFR - MDRD 60 (>89); GLUCOSE 116 mg/dL (70-100); HDL CHOLESTEROL 38 mg/dL; LDL CHOLESTEROL,CALCULATED 126 mg/dL; LDL/HDL RATIO 3.3 (<4.4); POTASSIUM 4.4 mmol/L (3.5-5.0); SODIUM 138 mmol/L (135-145); TOTAL PROTEIN 8.3 g/dL (6.7-8.2); TRIGLYCERIDES 140 mg/dL; VLDL CHOLESTEROL 28 mg/dL
[2021-01-31 16:11] LABS: LITHIUM 0.32 mmol/L
[2021-01-31 16:36] LABS: THYROID STIMULATING HORMONE 3.35 uIU/mL (0.34-5.60)
[2021-01-31 19:56] LABS: ESTIMATED AVERAGE GLUCOSE 117 mg/dL (70-100); HEMOGLOBIN A1c% 5.7 % (4.27-6.07)
== END 2021-01-31 10:09 | disposition home or self-care (01) ==
LOC: LAB.S 10:08
PROVIDERS: ATTEND Family Medicine
DX: F31.9 Bipolar disorder, unspecified (principal); Z79.899 Other long term (current) drug therapy
CPT/HCPCS: 36415; 80053; 80061; 80178; 83036; 83721; 84443; 85025

== ENCOUNTER 2021-02-28 15:50 | Outpatient (CLI) | payer MEDICARE ==
--- NOTE | 2021-02-28 18:29 | Ultrasound Report ---
PROCEDURE: Carotid Doppler Complete INDICATIONS: LEFT CAROTID BRUIT TECHNIQUE: Color and pulse Doppler interrogation was performed of both carotid systems, with image documentation and velocity measurements. COMPARISON: None. FINDINGS: Right side: Brachial blood pressure: 133/57 mm Hg. Common carotid artery peak systolic velocity: 78.6 cm/sec. Internal carotid artery peak systolic velocity: 84.8 cm/sec. Internal carotid artery end diastolic velocity: 23.7 cm/sec. External carotid artery peak systolic velocity: 168.6 cm/sec. ICA/CCA peak systolic ratio: 1.1 . Thompson scale imaging description: Mild to moderate amount of atherosclerotic plaques are noted in dist al common carotid artery and proximal internal and external carotid arteries. Percent internal carotid artery stenosis: Less than 50% . Vertebral artery: Flow direction is antegrade. Left side: Brachial blood pressure: 141/64 mm Hg. Common carotid artery peak systolic velocity: 119.7 cm/sec. Internal carotid artery peak systolic velocity: 94.4 cm/sec. Internal carotid artery end diastolic velocity: 29.4 cm/sec. External carotid artery peak systolic velocity: 86.4 cm/sec. ICA/CCA peak systolic ratio: 0.8 . Thompson scale imaging description: Mild to moderate amount of atherosclerotic plaques are noted in dist al left common carotid artery and proximal left internal and external carotid arteries. Percent internal carotid artery stenosis: Less than 50% . Vertebral artery: Flow direction is antegrade. IMPRESSION: Mild to moderate calcified atherosclerotic plaque in bilateral distal common carotid arteries and saqib ateral proximal internal and external carotid arteries with less than 50% stenosis more prominent on the left side. The estimate of stenosis included in the report of the imaging study was calculated using the NASCET method Reviewed by: Mervin Aquino MD on 02/28/2021 6:28 PM PDT Approved by: Mervin Aquino MD on 02/28/2021 6:28 PM PDT Station ID: [id number]
== END 2021-02-28 15:51 | disposition home or self-care (01) ==
LOC: DI 15:50
PROVIDERS: ATTEND Emergency Medicine
DX: R09.89 Other specified symptoms and signs involving the circulatory and respiratory systems (principal)
CPT/HCPCS: 93880

== ENCOUNTER 2021-05-14 11:57 | Outpatient (CLI) | payer MEDICARE ==
[~2021-05-14 11:57] MED LIST: GADOBUTROL 15 MMOL/15 ML VIAL ONE
[2021-05-14 12:41] LABS: CREATININE 0.9 mg/dL (0.4-1.0)
--- NOTE | 2021-05-14 14:38 | MRI Report ---
PROCEDURE: Brain W/WO INDICATIONS: VERTIGO CONTRAST: IV CONTRAST: Gadavist ml: 10 TECHNIQUE: Noncontrast axial T1 spin echo, axial T2 fast spin echo, sagittal and axial FLAIR, coronal T2 fast sp in echo, axial gradient echo, axial diffusion and ADC through the brain. After the administration of contrast, axial and coronal T1 spin echo with fat saturation through the brain. COMPARISON: None. FINDINGS: Image quality: Degraded by patient motion artifact. CSF spaces: Basal cisterns are patent. No extra-axial fluid collections. Ventricles are normal in size and shape. Brain: No midline shift. No intracranial bleeds or masses. No abnormal intracranial enhancement. There is moderate cerebral volume loss for age. There is minimal periventricular white matter chroni c small vessel ischemic change. The brainstem appears normal. Diffusion-weighted images demonstrate no acute ischemic insults. No chronic ischemic insults. Normal intravascular flow voids are presen t. Dural sinuses demonstrate normal postcontrast enhancement. Skull and face: Calvarial marrow is normal in signal. Orbits appear normal. Sinuses: Sinuses and mastoids appear clear. IMPRESSION: 1. No acute intracranial disease process. 2. No areas of acute or chronic infarction. 3. No abnormal intracranial mass or suspicious postcontrast enhancement. 4. Moderate, diffuse cerebral volume loss. 5. Minimal periventricular and subcortical white matter chronic microvascular ischemic change. Reviewed by: Martina Madera MD, PhD on 05/14/2021 2:37 PM PDT Approved by: Martina Madera MD, PhD on 05/14/2021 2:37 PM PDT Station ID: [id number]
[2021-05-14] MEDS ORDERED: GADOBUTROL 15 MMOL/15 ML VIAL IVP ONE (16:42)
== END 2021-05-14 11:58 | disposition home or self-care (01) ==
LOC: LAB 11:57 → DI 11:58
PROVIDERS: ATTEND Family Medicine
DX: R42 Dizziness and giddiness (principal); G31.1 Senile degeneration of brain, not elsewhere classified; I67.82 Cerebral ischemia
CPT/HCPCS: 36415; 70553; 82565; A9585

== ENCOUNTER 2021-11-12 10:03 | Outpatient (CLI) | payer MEDICARE ==
[2021-11-12 15:13] LABS: BASOPHILS # (AUTO) 0.1 10^3/uL (0.0-0.1); BASOPHILS % (AUTO) 1.1 %; EOSINOPHILS # (AUTO) 0.1 10^3/uL (0.0-0.7); EOSINOPHILS % (AUTO) 1.4 %; HCT - HEMATOCRIT 41.7 % (37.0-47.0); LYMPHOCYTES # (AUTO) 1.7 10^3/uL (1.5-3.5); LYMPHOCYTES % (AUTO) 26.5 %; MEAN CORPUSCULAR HEMOGLOBIN 28.7 pg (27.0-31.0); MEAN CORPUSCULAR HGB CONC 31.2 g/dL (32.0-36.0); MEAN CORPUSCULAR VOLUME 92.1 fL (81.0-99.0); MEAN PLATELET VOLUME 11.5 fL (7.9-10.8); MONOCYTES # (AUTO) 0.4 10^3/uL (0.0-1.0); MONOCYTES % (AUTO) 6.7 %; NEUTROPHILS % (AUTO) 64.1 %; PLT - PLATELET COUNT 200 10^3/uL (130-450); RED BLOOD COUNT 4.53 10^6/uL (4.20-5.40); RED CELL DISTRIBUTION WIDTH 14.5 % (12.0-15.0); WHITE BLOOD COUNT 6.3 x10^3/uL (4.8-10.8)
[2021-11-12 15:25] LABS: LITHIUM 0.32 mmol/L
[2021-11-12 15:37] LABS: ALBUMIN 3.8 g/dL (3.2-5.5); ALBUMIN/GLOBULIN RATIO 1.2 (1.0-2.2); ALKALINE PHOSPHATASE 76 IU/L (42-121); ALT ALANINE AMINOTRANSFERASE 23 IU/L (10-60); AST ASPARTATE AMINOTRANSFERASE 20 IU/L (10-42); BILIRUBIN,TOTAL 0.5 mg/dL (0.2-1.0); BUN - BLOOD UREA NITROGEN 16 mg/dL (6-20); CALCIUM 8.9 mg/dL (8.5-10.3); CARBON DIOXIDE - CO2 25 mmol/L (21-32); CHLORIDE 104 mmol/L (101-111); CHOL/HDL RATIO 4.4 (<4.4); CHOLESTEROL 170 mg/dL; CREATININE 0.9 mg/dL (0.4-1.0); GFR - MDRD 60 (>89); GLUCOSE 101 mg/dL (70-100); HDL CHOLESTEROL 39 mg/dL; LDL CHOLESTEROL,CALCULATED 111 mg/dL; LDL/HDL RATIO 2.8 (<4.4); POTASSIUM 3.8 mmol/L (3.5-5.0); SODIUM 138 mmol/L (135-145); TRIGLYCERIDES 100 mg/dL; VLDL CHOLESTEROL 20 mg/dL
[2021-11-12 15:44] LABS: THYROID STIMULATING HORMONE 3.62 uIU/mL (0.34-5.60)
[2021-11-12 20:38] LABS: ESTIMATED AVERAGE GLUCOSE 123 mg/dL (70-100); HEMOGLOBIN A1c% 5.9 % (4.27-6.07)
== END 2021-11-12 10:04 | disposition home or self-care (01) ==
LOC: LAB.S 10:03
PROVIDERS: ATTEND Psychiatry & Neurology Psychiatry
DX: F33.42 Major depressive disorder, recurrent, in full remission (principal); F41.9 Anxiety disorder, unspecified; Z51.81 Encounter for therapeutic drug level monitoring; Z79.899 Other long term (current) drug therapy
CPT/HCPCS: 36415; 80053; 80061; 80178; 83036; 83721; 84443; 85025

== ENCOUNTER 2022-04-15 11:47 | Outpatient (CLI) | payer MEDICARE ==
[2022-04-15 14:13] LABS: LITHIUM 0.31 mmol/L
[2022-04-15 14:21] LABS: ALBUMIN 4.2 g/dL (3.2-5.5); ALBUMIN/GLOBULIN RATIO 1.1 (1.0-2.2); BILIRUBIN,TOTAL 0.5 mg/dL (0.2-1.0); CALCIUM 9.7 mg/dL (8.5-10.3); CREATININE 0.9 mg/dL (0.4-1.0); POTASSIUM 4.2 mmol/L (3.5-5.0)
[2022-04-15 14:27] LABS: ESTIMATED AVERAGE GLUCOSE 123 mg/dL (70-100); HEMOGLOBIN A1c% 5.9 % (4.27-6.07)
[2022-04-15 14:35] LABS: THYROID STIMULATING HORMONE 3.78 uIU/mL (0.34-5.60)
[2022-04-15 14:39] LABS: FREE T4 (FREE THYROXINE) 1.02 ng/dL (0.58-1.64)
== END 2022-04-15 11:48 | disposition home or self-care (01) ==
LOC: LAB.S 11:47
PROVIDERS: ATTEND Physician Assistant
DX: Z79.899 Other long term (current) drug therapy (principal)
CPT/HCPCS: 36415; 80053; 80178; 83036; 84439; 84443

== ENCOUNTER 2022-05-26 13:27 | Outpatient (CLI) | payer MEDICARE ==
[2022-05-26 20:19] LABS: CALCIUM 9.9 mg/dL (8.5-10.3); POTASSIUM 4.1 mmol/L (3.5-5.0)
== END 2022-05-26 13:28 | disposition home or self-care (01) ==
LOC: LAB.S 13:27
PROVIDERS: ATTEND Physician Assistant
DX: Z79.899 Other long term (current) drug therapy (principal)
CPT/HCPCS: 36415; 80048; 80178

== ENCOUNTER 2023-01-19 12:52 | Outpatient (CLI) | payer MEDICARE ==
[2023-01-19 19:54] LABS: BASOPHILS # (AUTO) 0.1 10^3/uL (0.0-0.1); BASOPHILS % (AUTO) 0.9 %; EOSINOPHILS # (AUTO) 0.2 10^3/uL (0.0-0.7); EOSINOPHILS % (AUTO) 2.2 %; HCT - HEMATOCRIT 45.2 % (37.0-47.0); HGB - HEMOGLOBIN 13.7 g/dL (12.0-16.0); LYMPHOCYTES # (AUTO) 2.2 10^3/uL (1.5-3.5); LYMPHOCYTES % (AUTO) 28.7 %; MEAN CORPUSCULAR HEMOGLOBIN 27.5 pg (27.0-31.0); MEAN CORPUSCULAR HGB CONC 30.3 g/dL (32.0-36.0); MEAN CORPUSCULAR VOLUME 90.8 fL (81.0-99.0); MEAN PLATELET VOLUME 11.7 fL (7.9-10.8); MONOCYTES # (AUTO) 0.6 10^3/uL (0.0-1.0); MONOCYTES % (AUTO) 7.3 %; NEUTROPHILS # (AUTO) 4.7 10^3/uL (1.5-6.6); NEUTROPHILS % (AUTO) 60.6 %; PLT - PLATELET COUNT 216 10^3/uL (130-450); RED BLOOD COUNT 4.98 10^6/uL (4.20-5.40); RED CELL DISTRIBUTION WIDTH 15.2 % (12.0-15.0); WHITE BLOOD COUNT 7.8 x10^3/uL (4.8-10.8)
[2023-01-19 19:56] LABS: LITHIUM 0.32 mmol/L
[2023-01-19 19:58] LABS: BILIRUBIN,TOTAL 0.5 mg/dL (0.2-1.0); CALCIUM 9.1 mg/dL (8.5-10.3); POTASSIUM 4.2 mmol/L (3.5-5.0); TOTAL PROTEIN 8.1 g/dL (6.7-8.2)
[2023-01-19 20:04] LABS: ESTIMATED AVERAGE GLUCOSE 117 mg/dL (70-100); HEMOGLOBIN A1c% 5.7 % (4.27-6.07)
[2023-01-19 20:13] LABS: THYROID STIMULATING HORMONE 3.09 uIU/mL (0.34-5.60)
== END 2023-01-19 12:53 | disposition home or self-care (01) ==
LOC: LAB.S 12:52
PROVIDERS: ATTEND Physician Assistant
DX: R73.03 Prediabetes (principal); Z79.899 Other long term (current) drug therapy
CPT/HCPCS: 36415; 80053; 80178; 83036; 84443; 85025

== ENCOUNTER 2023-02-01 08:58 | Outpatient (CLI) | payer MEDICARE | END 2023-02-01 08:59 | disposition home or self-care (01) | LOC: DI 08:58 | PROVIDERS: ATTEND Physician Assistant | DX: R00.2 Palpitations (principal); H34.232 Retinal artery branch occlusion, left eye | CPT/HCPCS: 93306 ==

== ENCOUNTER 2023-02-07 12:14 | Outpatient (CLI) | payer MEDICARE ==
--- NOTE | 2023-02-07 13:16 | Ultrasound Report ---
PROCEDURE: Carotid Doppler Complete INDICATIONS: CAROTID BRUIT TECHNIQUE: Color and pulse Doppler interrogation was performed of both carotid systems, with image documentation and velocity measurements. COMPARISON: None. FINDINGS: Right side: Brachial blood pressure: 120/70 mm Hg. Common carotid artery peak systolic velocity: 91 cm/sec. Internal carotid artery peak systolic velocity: 99 cm/sec. Internal carotid artery end diastolic velocity: 26 cm/sec. External carotid artery peak systolic velocity: 197 cm/sec. ICA/CCA peak systolic ratio: 1.1 . Thompson scale imaging description: No significant atherosclerotic plaque. Percent internal carotid artery stenosis: Less than 50%. Vertebral artery: Flow direction is antegrade. Left side: Brachial blood pressure: 99/59 mm Hg. Common carotid artery peak systolic velocity: 95 cm/sec. Internal carotid artery peak systolic velocity: 108 cm/sec. Internal carotid artery end diastolic velocity: 32 cm/sec. External carotid artery peak systolic velocity: 101 cm/sec. ICA/CCA peak systolic ratio: 1.1 . Thompson scale imaging description: No significant atherosclerotic plaque. Percent internal carotid artery stenosis: Less than 50%. Vertebral artery: Flow direction is antegrade. IMPRESSION: Less than 50% bilateral internal carotid artery stenosis bilaterally. The estimate of stenosis included in the report of the imaging study was calculated using the [facility]-end orsed standards of carotid artery stenosis. Reviewed by: Dafne Lyman MD on 02/07/2023 1:14 PM PDT Approved by: Dafne Lyman MD on 02/07/2023 1:14 PM PDT Station ID: [id number]
== END 2023-02-07 12:15 | disposition home or self-care (01) ==
LOC: DI 12:14
PROVIDERS: ATTEND Physician Assistant
DX: R09.89 Other specified symptoms and signs involving the circulatory and respiratory systems (principal); H34.232 Retinal artery branch occlusion, left eye; I65.23 Occlusion and stenosis of bilateral carotid arteries
CPT/HCPCS: 93880

== ENCOUNTER 2023-03-25 12:16 | Outpatient (CLI) | payer MEDICARE ==
[2023-03-25 14:37] LABS: BUN - BLOOD UREA NITROGEN 19 mg/dL (6-20); CALCIUM 9.4 mg/dL (8.5-10.3); CARBON DIOXIDE - CO2 26 mmol/L (21-32); CHLORIDE 105 mmol/L (101-111); CHOL/HDL RATIO 5.1 (<4.4); CHOLESTEROL 178 mg/dL; GFR - MDRD 53 (>89); GLUCOSE 107 mg/dL (74-104); HDL CHOLESTEROL 35 mg/dL; LDL CHOLESTEROL,CALCULATED 99 mg/dL; LDL/HDL RATIO 2.8 (<4.4); LITHIUM 0.33 mmol/L; POTASSIUM 4.5 mmol/L (3.5-4.5); SODIUM 138 mmol/L (135-145); TRIGLYCERIDES 220 mg/dL (48-352); VLDL CHOLESTEROL 44 mg/dL
== END 2023-03-25 12:17 | disposition home or self-care (01) ==
LOC: LAB.S 12:16
PROVIDERS: ATTEND Physician Assistant
DX: E78.5 Hyperlipidemia, unspecified (principal); Z79.899 Other long term (current) drug therapy
CPT/HCPCS: 36415; 80048; 80061; 80178; 83721

== ENCOUNTER 2023-09-21 12:38 | Outpatient (CLI) | payer MEDICARE ==
[2023-09-21 20:00] LABS: BASOPHILS # (AUTO) 0.1 10^3/uL (0.0-0.1); BASOPHILS % (AUTO) 0.9 %; EOSINOPHILS # (AUTO) 0.1 10^3/uL (0.0-0.7); EOSINOPHILS % (AUTO) 1.7 %; HCT - HEMATOCRIT 42.1 % (37.0-47.0); LYMPHOCYTES # (AUTO) 1.3 10^3/uL (1.5-3.5); LYMPHOCYTES % (AUTO) 16.3 %; MEAN CORPUSCULAR HEMOGLOBIN 28.6 pg (27.0-31.0); MEAN CORPUSCULAR HGB CONC 30.9 g/dL (32.0-36.0); MEAN CORPUSCULAR VOLUME 92.5 fL (81.0-99.0); MEAN PLATELET VOLUME 11.8 fL (7.9-10.8); MONOCYTES # (AUTO) 0.6 10^3/uL (0.0-1.0); MONOCYTES % (AUTO) 7.6 %; NEUTROPHILS % (AUTO) 73.3 %; PLT - PLATELET COUNT 220 10^3/uL (130-450); RED BLOOD COUNT 4.55 10^6/uL (4.20-5.40); RED CELL DISTRIBUTION WIDTH 14.7 % (12.0-15.0); WHITE BLOOD COUNT 8.2 x10^3/uL (4.8-10.8)
[2023-09-21 20:08] LABS: ALBUMIN 4.1 g/dL (3.2-5.5); ALBUMIN/GLOBULIN RATIO 1.2 (1.0-2.2); ALKALINE PHOSPHATASE 84 IU/L (42-121); ALT ALANINE AMINOTRANSFERASE 17 IU/L (10-60); AST ASPARTATE AMINOTRANSFERASE 14 IU/L (10-42); BILIRUBIN,TOTAL 0.5 mg/dL (0.2-1.0); BUN - BLOOD UREA NITROGEN 19 mg/dL (6-20); CALCIUM 9.5 mg/dL (8.5-10.3); CARBON DIOXIDE - CO2 25 mmol/L (21-32); CHLORIDE 105 mmol/L (101-111); CHOL/HDL RATIO 4.8 (<4.4); CHOLESTEROL 167 mg/dL; CREATININE 0.9 mg/dL (0.6-1.3); GFR - MDRD 60 (>89); GLUCOSE 117 mg/dL (74-104); HDL CHOLESTEROL 35 mg/dL; LDL CHOLESTEROL,CALCULATED 99 mg/dL; LDL/HDL RATIO 2.8 (<4.4); POTASSIUM 4.2 mmol/L (3.5-4.5); SODIUM 135 mmol/L (135-145); TOTAL PROTEIN 7.5 g/dL (6.4-8.9); TRIGLYCERIDES 165 mg/dL (48-352); VLDL CHOLESTEROL 33 mg/dL
[2023-09-21 20:11] LABS: LITHIUM 0.72 mmol/L
[2023-09-21 20:24] LABS: THYROID STIMULATING HORMONE 3.51 uIU/mL (0.34-5.60)
== END 2023-09-21 12:39 | disposition home or self-care (01) ==
LOC: LAB.S 12:38
PROVIDERS: ATTEND Physician Assistant
DX: E78.5 Hyperlipidemia, unspecified (principal); Z79.899 Other long term (current) drug therapy
CPT/HCPCS: 36415; 80053; 80061; 80178; 83721; 84443; 85025

== ENCOUNTER 2024-01-18 14:10 | Outpatient (CLI) | payer MEDICARE ==
--- NOTE | 2024-01-18 23:49 | XRAY Report ---
PROCEDURE: Chest 2V INDICATIONS: SHORTNESS OF BREATH TECHNIQUE: 2 views of the chest were acquired. COMPARISON: 05/14/2019, 06/15/2014 FINDINGS: Surgical changes and devices: None. Lungs and pleura: Mild interstitial and bronchial wall thickening. Minor airspace opacity seen later ally along the left lung base. No pleural effusion or pneumothorax. Mediastinum: Mediastinal contours appear normal. Heart size is normal. Small hiatal hernia presen t. Bones and chest wall: No suspicious bony lesions. Overlying soft tissues appear unremarkable. IMPRESSION: Interstitial and bronchial wall thickening suggesting bronchitis possibly viral pneumonitis. Possible small developing infection left lateral lung base versus atelectasis. Reviewed by: Lisa Harris MD on 01/18/2024 11:48 PM PDT Approved by: Lisa Harris MD on 01/18/2024 11:48 PM PDT Station ID: [id number]
== END 2024-01-18 16:04 | disposition home or self-care (01) ==
LOC: DI.N 14:10
PROVIDERS: ATTEND Physician Assistant Medical
DX: R06.02 Shortness of breath (principal); R91.8 Other nonspecific abnormal finding of lung field

== ENCOUNTER 2024-02-15 09:57 | Outpatient (CLI) | payer MEDICARE ==
--- NOTE | 2024-02-15 16:21 | Ultrasound Report ---
PROCEDURE: Carotid Doppler Complete INDICATIONS: LT RETINAL ARTERY BRANCH OCCLUSION TECHNIQUE: Color and pulse Doppler interrogation was performed of both carotid systems, with image documentation and velocity measurements. COMPARISON: Carotid ultrasound 02/07/2023. FINDINGS: Right side: Brachial blood pressure: 135/68 mm Hg. Common carotid artery peak systolic velocity: 108 cm/sec. Internal carotid artery peak systolic velocity: 92 cm/sec. (Previously 99 cm/s). Internal carotid artery end diastolic velocity: 23 cm/sec. External carotid artery peak systolic velocity: 165 cm/sec. ICA/CCA peak systolic ratio: 0.8. Thompson scale imaging description: Moderate atherosclerotic plaque. Percent internal carotid artery stenosis: Less than 50 percent stenosis. Vertebral artery: Flow direction is antegrade. Left side: Brachial blood pressure: 118/65 mm Hg. Common carotid artery peak systolic velocity: 85 cm/sec. Internal carotid artery peak systolic velocity: 109 cm/sec. (Previously 108 cm/s). Internal carotid artery end diastolic velocity: 39 cm/sec. External carotid artery peak systolic velocity: 91 cm/sec. ICA/CCA peak systolic ratio: 1.29. Thompson scale imaging description: Moderate atherosclerotic plaque. Percent internal carotid artery stenosis: Less than 50 percent stenosis. Vertebral artery: Flow direction is antegrade. IMPRESSION: 1. In the right internal carotid artery, there is less than 50 percent stenosis based on peak systoli c velocity criteria. 2. In the left internal carotid artery, there is less than 50 percent stenosis based on peak systolic velocity criteria. 3. Antegrade blood flow within the right vertebral artery. 4. Antegrade blood flow within the left vertebral artery. The estimate of stenosis included in the report of the imaging study was calculated using the [facility]-end orsed standards of carotid artery stenosis. Reviewed by: Nolan Suresh MD on 02/15/2024 4:20 PM PDT Approved by: Nolan Suresh MD on 02/15/2024 4:20 PM PDT Station ID: [id number]
== END 2024-02-15 09:58 | disposition home or self-care (01) ==
LOC: DI 09:57
PROVIDERS: ATTEND Physician Assistant
DX: H34.232 Retinal artery branch occlusion, left eye (principal); I65.23 Occlusion and stenosis of bilateral carotid arteries
CPT/HCPCS: 93880